=== PATIENT | male | born 1970 ===

== ENCOUNTER 2021-03-24 20:57 | Emergency (ER) | payer OTHER ==
[~2021-03-24] VITALS: Ht 180.3 cm; Wt 124.7 kg
== END 2021-03-24 22:37 | disposition home or self-care (01) ==
LOC: ER 20:57
DX: U07.1 COVID-19 (principal)
CPT/HCPCS: 99283

== ENCOUNTER → 2022-10-11 | Outpatient (CLI) | payer BC ==
[2022-10-13 00:11] LABS: CHLAMYDIA TRACHOMATIS, NAA Negative (Negative)
== END | disposition home or self-care (01) ==
LOC: LAB SHORT 13:11 → LAB 13:11
PROVIDERS: Naturopath
DX: Z11.3 Encounter for screening for infections with a predominantly sexual mode of transmission (principal)
CPT/HCPCS: 87491; 87591